=== PATIENT | female | born 1990 | race African-American/Black ===

== ENCOUNTER 2016-09-02 00:04 | Emergency (ER) | payer MEDICAID ==
[~2016-09-02] VITALS: Ht 160 cm; Wt 82.0 kg
[~2016-09-02 00:04] MED LIST: IRON18TA PO; PREN1TAB49 PO
[2016-09-02 06:53] VITALS: BP 121/76
== END 2016-09-02 06:56 | disposition home or self-care (01) ==
LOC: ER 04:24
DX: S92.811A Other fracture of right foot, initial encounter for closed fracture (principal); M79.672 Pain in left foot; F17.200 Nicotine dependence, unspecified, uncomplicated; X58.XXXA Exposure to other specified factors, initial encounter; Y93.89 Activity, other specified; Y92.89 Other specified places as the place of occurrence of the external cause; Y99.8 Other external cause status
CPT/HCPCS: 29515; 73630; 99284

== ENCOUNTER 2017-05-11 10:10 | Emergency (ER) | payer MEDICAID ==
[~2017-05-11] VITALS: Ht 160 cm; Wt 83.0 kg
[2017-05-11 10:11] VITALS: BP 108/65
== END 2017-05-11 19:17 | disposition left against medical advice (07) ==
LOC: ER 10:17
DX: R10.9 Unspecified abdominal pain (principal); Z53.21 Procedure and treatment not carried out due to patient leaving prior to being seen by health care provider

== ENCOUNTER 2023-11-30 15:36 | Emergency (ER) | payer MEDICAID ==
[~2023-11-30] VITALS: Ht 157.5 cm; Wt 80.3 kg
[2023-11-30 15:40] VITALS: O2SAT 100
[2023-11-30] MEDS ORDERED: DEXAMETHASONE 1MG TABLET PO ONE (17:15)
[2023-11-30 18:07] LABS: BASOPHILS % 1.1 % (0.0-2.0); DIFFERENTIAL COMMENT 0; EOSINOPHILS % 2.1 % (0.0-5.0); HEMOGLOBIN. 12.4 g/dL (12.0-16.0); LYMPHOCYTES % 48.9 % (20.0-50.0); MEAN CORPUSCULAR HEMOGLOBIN 24.7 pg (28.0-32.0); MEAN CORPUSCULAR HGB CONC 31.8 g/dL (31.0-37.0); MEAN CORPUSCULAR VOLUME 77.7 fL (81.0-99.0); MEAN PLATELET VOLUME 8.2 fl (7.4-10.4); MONOCYTES % 8.7 % (2.0-8.0); NEUTROPHILS % 39.2 % (40.0-76.0); PLATELET 265 x1000/uL (130-400); RED BLOOD CELL COUNT 5.02 mill/uL (4.2-5.4); RED CELL DISTRIBUTION WIDTH 16.7 % (11.6-14.6); WHITE BLOOD COUNT 6.1 x1000/uL (4.5-11.0)
[2023-11-30 18:14] LABS: CHLORIDE 108 mEq/L (98-107); POTASSIUM 3.6 mEq/L (3.5-5.1); SODIUM 142 mEq/L (136-145)
[2023-11-30 18:15] LABS: CALCIUM 9.8 mg/dL (8.7-10.4); CARBON DIOXIDE 29 mEq/L (21-32)
[2023-11-30 18:17] LABS: HCG SCREEN NEGATIVE
[2023-11-30 18:20] LABS: CREATININE 0.8 mg/dL (0.6-1.0); GLUCOSE 85 mg/dL (70-105); UREA NITROGEN BLOOD 8 mg/dL (9-23)
[2023-11-30 18:21] LABS: TROPONIN I HIGH SENSITIVITY < 4 ng/L (3.0-34)
[2023-11-30] MEDS: LORATADINE 10MG TABLET PO SCH (19:48)
[2023-11-30] MEDS: DEXAMETHASONE 4MG TABLET PO NR (19:49)
[2023-11-30 19:58] VITALS: BP 124/68; PULSE 78; RESP 20; TEMP 36.83628; O2SAT 100
== END 2023-11-30 20:03 | disposition home or self-care (01) ==
LOC: ER 15:36
DX: R07.89 Other chest pain (principal); R06.02 Shortness of breath; L50.9 Urticaria, unspecified; Z98.890 Other specified postprocedural states
CPT/HCPCS: 99285; 71045; 80048; 84703; 85025; 84484; 36415; 93005; J8540

== ENCOUNTER 2023-12-15 10:38 | Emergency (ER) | payer MEDICAID ==
[~2023-12-15] VITALS: Ht 167.6 cm; Wt 81.0 kg
[2023-12-15 10:44] VITALS: O2SAT 99
[2023-12-15] MEDS ORDERED: OXYM30SP26 BOTHNSTRLS (10:58)
[2023-12-15] MEDS ORDERED: P50 MT (10:58)
[2023-12-15] MEDS ORDERED: AMOX1TAB16 MT (10:58)
[2023-12-15 11:05] VITALS: BP 130/77; PULSE 77; RESP 18; TEMP 36.94740; O2SAT 99
== END 2023-12-15 11:05 | disposition home or self-care (01) ==
LOC: ER 10:38
DX: H66.93 Otitis media, unspecified, bilateral (principal); Z98.890 Other specified postprocedural states; Z79.899 Other long term (current) drug therapy
CPT/HCPCS: 99283

== ENCOUNTER 2024-11-10 17:01 | Emergency (ER) | payer MEDICAID ==
[~2024-11-10] VITALS: Ht 160 cm; Wt 85.7 kg
[~2024-11-10 17:01] MED LIST changes: +AMOX1TAB16 MT; +OXYM30SP26 BOTHNSTRLS; +P50 MT
[2024-11-10 17:16] VITALS: O2SAT 99
[2024-11-10] MEDS ORDERED: DICL100G46 TP (19:37)
[2024-11-10 19:52] VITALS: BP 142/94; PULSE 74; RESP 14; TEMP 36.7; O2SAT 100
== END 2024-11-10 19:54 | disposition home or self-care (01) ==
LOC: ER 17:03
DX: M79.671 Pain in right foot (principal); Z79.899 Other long term (current) drug therapy; Z98.890 Other specified postprocedural states
CPT/HCPCS: 73630; 99283